=== PATIENT | female | born 1980 | race Two or more races ===

== ENCOUNTER 2017-08-16 16:01 | Emergency (ER) | END 2017-08-16 16:57 | disposition home or self-care (01) ==

== ENCOUNTER 2017-08-17 14:22 | Emergency (ER) | END 2017-08-17 18:00 | disposition home or self-care (01) ==

== ENCOUNTER 2017-10-31 15:09 | Emergency (ER) | END 2017-10-31 21:06 | disposition home or self-care (01) ==

== ENCOUNTER 2018-01-30 11:34 | Emergency (ER) | END 2018-01-30 15:29 | disposition home or self-care (01) ==

== ENCOUNTER 2018-02-07 10:11 | Emergency (ER) | END 2018-02-07 12:13 | disposition home or self-care (01) ==